=== PATIENT | male | born 1985 | race Caucasian/White ===

== ENCOUNTER 2016-05-28 07:27 | Day surgery (SDC) | payer OTHER ==
[~2016-05-28 07:27] MED LIST: Lactated Ringers 1,000 ML IV SCH
[2016-05-28] MEDS ORDERED: Lidocaine 1% 50 ML MDV ONE (07:30)
[2016-05-28] MEDS ORDERED: ceFAZolin 2 GM in Premix Bag 1 BAG IV SCH (08:00)
--- NOTE | 2016-05-28 08:34 | PCM.PREANE ---
Preanesthetic Assessment - Anesthesia/Transfusion/Family Hx Anesthesia History: Prior Anesthesia Without Reaction Type of Anesthesia Reaction: Unknown Transfusion History: No Prior Transfusion(s) Intubation History: Unknown - Review of Systems General: No Symptoms Pulmonary: Other (smoker, daily) Gastrointestinal: No symptoms Neurological: Difficulty Walking (on surgical knee) Other: Reports: None - Physical Assessment O2 Sat by Pulse Oximetry: 98 Respiratory Rate: 18 Vital Signs: Last Vital Signs Temp 98.6 F 05/28/16 07:49 Pulse 72 05/28/16 07:49 Resp 18 05/28/16 07:49 BP 140/72 05/28/16 07:49 Pulse Ox 98 05/28/16 07:49 Height: 5 ft 10 in Weight: 210 lb ASA Class: 2 Mental Status: Alert & Oriented x3 Airway Class: Mallampati = 1 Dentition: Reports: Normal Dentition Thyro-Mental Finger Breadths: 3 Mouth Opening Finger Breadths: 3 ROM/Head Extension: Full Lungs: Clear to auscultation, Normal respiratory effort Cardiovascular: Regular Rate, Regular Rhythm - Allergies Allergies/Adverse Reactions: Allergies Allergy/AdvReac Type Severity Reaction Status Date / Time No Known Allergies Allergy Verified 05/23/16 10:57 - Blood Blood Available: No Product(s) Available: None - Anesthesia Plan Pre-Op Medication Ordered: None - Acknowledgements Anesthesia Type Planned: General Anesthesia (LMA) Pt an Appropriate Candidate for the Planned Anesthesia: Yes Alternatives and Risks of Anesthesia Discussed w Pt/Guardian: Yes Pt/Guardian Understands and Agrees with Anesthesia Plan: Yes PreAnesthesia Questionnaire HEENT History: Reports: Hard of hearing Other HEENT History: 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 was told hearing aide may also help with migranes Cardiovascular History: Reports: None Respiratory History: Reports: None Gastrointestinal History: Reports: None Genitourinary History: Reports: None Musculoskeletal History: Reports: Fracture Other Musculoskeletal History: hx of fx left wrist and elbow Neurological History: Reports: Brain injury, Concussion, Migraines Psychiatric History: Reports: None Endocrine/Metabolic History: Reports: None Hematologic History: Reports: None Immunologic History: Reports: None Oncologic (Cancer) History: Reports: None Dermatologic History: Reports: None - Past Surgical History HEENT Surgical History: Reports: None Cardiovascular Surgical History: Reports: None Respiratory Surgical History: Reports: None GI Surgical History: Reports: None Male Surgical History: Reports: None Endocrine Surgical History: Reports: None Neurological Surgical History: Reports: None Musculoskeletal Surgical History: Reports: Arthroscopic knee Other Musculoskeletal Surgeries/Procedures:: partial ACL tear left knee Oncologic Surgical History: Reports: None Dermatological Surgical History: Reports: None - SUBSTANCE USE Smoking Status *Q: Current Every Day Smoker Tobacco Use Within Last Twelve Months: Cigarettes Recreational Drug Use History: No - HOME MEDS Home Medications: Home Meds Divalproex Sodium [Divalproex Sodium ER] 500 mg PO DAILY 05/23/16 [History] tiZANidine HCl [Tizanidine HCl] 4 mg PO ASDIRECTED PRN 05/23/16 [History] traMADol HCl [Tramadol HCl] 50 mg PO ASDIRECTED PRN 05/23/16 [History] traZODone HCl [Trazodone HCl] 150 mg PO BEDTIME 05/23/16 [History] - CURRENT (IN HOUSE) MEDS Current Meds: Current Medications Hydrocodone Bitart/Acetaminophen ([place] 325-5 Mg) 1 - 2 tab PO Q4H PRN PRN Reason: Pain Lactated Ringer's (Ringers, Lactated) 1,000 mls @ 100 mls/hr IV ASDIRECTED ESTUARDO Last Admin: 05/28/16 07:51 Dose: 100 mls/hr Cefazolin Sodium/Dextrose 2 gm (/ Premix) 50 mls @ 100 mls/hr IV ONCALL ESTUARDO Discontinued Medications Lidocaine HCl (Xylocaine 1%) Confirm Administered Dose 50 ml .ROUTE .STK-MED ONE Stop: 05/28/16 07:31 Preanesthetic Assessment - ANESTHESIA/TRANSFUSION/FAMILY HX Family History of Anesthesia Reaction: No - PHYSICAL ASSESSMENT O2 Sat by Pulse Oximetry: 98 RR: 18 Vital Signs: Last Vital Signs Temp 98.6 F 05/28/16 07:49 Pulse 72 05/28/16 07:49 Resp 18 05/28/16 07:49 BP 140/72 05/28/16 07:49 Pulse Ox 98 05/28/16 07:49 Height: 5 ft 10 in Weight: 210 lb - ALLERGIES Allergies/Adverse Reactions: Allergies Allergy/AdvReac Type Severity Reaction Status Date / Time No Known Allergies Allergy Verified 05/23/16 10:57
[2016-05-28] MEDS ORDERED: Lidocaine 2% 5 ML SDV ONE (08:50)
[2016-05-28] MEDS ORDERED: Propofol 200 MG/20 ML SDV ONE (08:51)
[2016-05-28] MEDS ORDERED: Midazolam 1 MG/ML 2 ML SDV ONE (08:51)
[2016-05-28] MEDS ORDERED: fentaNYL 250 MCG/5 ML SDV ONE (08:51)
[2016-05-28] MEDS ORDERED: Ketorolac 30 MG/ML SDV ONE (08:52)
[2016-05-28] MEDS ORDERED: Ondansetron 4 MG/2 ML SDV ONE (08:52)
[2016-05-28] MEDS ORDERED: Acetaminophen/HYDROcodone 325-5 MG Tab PO PRN (09:00)
[2016-05-28] MEDS ORDERED: fentaNYL 100 MCG/2 ML SDV IVPUSH PRN (09:33)
[2016-05-28] MEDS ORDERED: HYDROmorphone 2 MG/ML Syringe IVPUSH ONE (09:35)
--- NOTE | 2016-05-28 10:08 | PCM.OPNOTE ---
- General Post-Op/Procedure Note Date of Surgery/Procedure: 05/28/16 Operative Procedure(s): L knee scope with PLM Post-Op Diagnosis: L knee lateral meniscus tear Anesthesia Technique: General LMA Primary Surgeon: Shakira Boles Senior Net Architect: Becky Vaughan in mLs: 5 Condition: Good Free Text/Narrative:: 21 min tt #[id number]
[2016-05-28 11:47] VITALS: BP 108/60
--- NOTE | 2016-05-28 12:54 | PCM48HPAN ---
Post Anesthesia Note - EVALUATION WITHIN 48HRS OF ANESTHETIC Vital Signs in Normal Range: Yes Patient Participated in Evaluation: Yes Respiratory Function Stable: Yes Airway Patent: Yes Cardiovascular Function Stable: Yes Hydration Status Stable: Yes Pain Control Satisfactory: Yes Nausea and Vomiting Control Satisfactory: Yes Mental Status Recovered: Yes
--- NOTE | 2016-05-28 12:54 | PCM.POSTAN ---
POST ANESTHESIA ASSESSMENT - MENTAL STATUS Mental Status: alert, oriented - RESPIRATORY Respiratory Status: respiratory rate WNL, airway patent - CARDIOVASCULAR CV Status: pulse rate WNL, blood pressure stable - GASTROINTESTINAL GI Status: no symptoms - POST OP HYDRATION Hydration Status: adequate & stable
--- NOTE | 2016-05-28 17:37 | OR ---
SURGEON: Shakira Boles MD DATE OF PROCEDURE: 05/28/2016 PREOPERATIVE DIAGNOSIS: Left knee pain. POSTOPERATIVE DIAGNOSES: Left knee lateral meniscus tear. PROCEDURE: Left knee arthroscopy with partial lateral meniscectomy. RECEPTIONIST SCHEDULER: Becky Vaughan MD, PGY-2. ANESTHESIA: General. ESTIMATED BLOOD LOSS: 5 mL. TOURNIQUET TIME: 21 minutes. COMPLICATIONS: None. DVT PROPHYLAXIS: Not indicated. IMPLANTS USED: None. BRIEF HISTORY: Glen is a 31-year-old male, who has had complaint of persistent left knee pain. He has previously undergone a left knee arthroscopy and was told that he had a partial tear of his ACL. I do not have any records from that surgery. He has continued to complain of left knee pain. He did have a diagnostic injection, which did give him full short term relief. Due to his lack of response to conservative treatment, I did recommend surgical intervention. The risks and goals of the procedure were discussed with the patient and were documented preoperatively. He agreed to proceed. DESCRIPTION OF PROCEDURE: The patient was properly identified and brought to the operating room. He was transferred from the OR cart and placed on the operating table in a supine position. General anesthesia was administered. After adequate anesthesia was obtained, a well-padded tourniquet was applied to the left lower extremity. The left lower extremity was then prepped in standard fashion using ChloraPrep solution. It was then sterilely draped. A time-out was performed to ensure correct site and procedure. Preoperative antibiotics were given. The surgical site had been marked preoperatively. An Esmarch was used to exsanguinate the left lower extremity and the tourniquet was inflated to 250 mmHg. A lateral portal arthrotomy was established. Blunt trocar and cannula were introduced into the suprapatellar pouch. Camera, inflow, and outflow were assembled. No synovitis was noted. The patellofemoral joint was visualized. No degenerative changes were noted. The patella appeared to track centrally. I then extended down the lateral and medial gutters. No loose bodies were identified. I then entered the medial compartment. A medial portal arthrotomy was established. A blunt probe was inserted. The meniscus was extensively probed. No tears were appreciated. The medial tibial plateau and medial femoral condyle showed no significant degenerative findings. I then entered the notch. Both the ACL and PCL were visualized and probed. The ACL was extensively probed in its attachment to the lateral femoral condyle was intact. With direct imaging of the anterior cruciate ligament, drawer test was performed. The ACL appeared to be competent. I entered the posterior lateral joint space and no loose bodies were identified. I then entered the lateral compartment. The lateral portion of the meniscus showed degenerative fraying with a small radial tear. This was resected using a combination of biters and shaver. The meniscus was again probed and the remainder was found to be stable. The lateral tibial plateau did show a deep fissure along the medial portion of the lateral tibial plateau. This was probed. No loose cartilage was associated with it. He appeared to have full thickness cartilage overlying the fissure. 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 The lateral femoral condyle showed no significant degenerative changes. The instruments were then removed from the knee. The portal sites were closed with 3-0 nylon. Lidocaine 1% was injected along the portal tracts. Xeroform gauze was placed over the wound and a bulky dressing was applied. The tourniquet was then deflated. He was awakened from his anesthetic and transferred back to the operating room cart. He was brought to recovery room in stable condition. All needle and sponge counts were correct. LANA / JOSH /[id number]
== END 2016-05-28 12:05 | disposition home or self-care (01) ==
LOC: MW.SDS 07:27
PROVIDERS: ATTEND Orthopaedic Surgery
PROC: 0SBD4ZZ Excision of Left Knee Joint, Percutaneous Endoscopic Approach (ICD-10-PCS; principal; 2016-05-28)
DX: S83.282A Other tear of lateral meniscus, current injury, left knee, initial encounter (principal); M94.262 Chondromalacia, left knee; F17.210 Nicotine dependence, cigarettes, uncomplicated; Z79.899 Other long term (current) drug therapy; Z98.890 Other specified postprocedural states
CPT/HCPCS: 29881; 88304; J1885; J2250; J2405; J3010; J7120; 01400; J2704